=== PATIENT | male | born 1970 | race Hispanic/Latino ===

== ENCOUNTER 2020-04-05 16:50 | Emergency (ER) | payer OTHER ==
[2020-04-06 15:09] LABS: SARS-CoV-2 MS2 Positive; SARS-CoV-2 N Gene Negative; SARS-CoV-2 S Gene Negative; SARS-CoV-2 orf1ab Negative
== END 2020-04-05 17:23 | disposition home or self-care (01) ==
LOC: ERS 16:50
DX: J02.9 Acute pharyngitis, unspecified (principal); Z20.828 Contact with and (suspected) exposure to other viral communicable diseases; E11.9 Type 2 diabetes mellitus without complications; Z79.84 Long term (current) use of oral hypoglycemic drugs
CPT/HCPCS: 87635; 99283; U0003

== ENCOUNTER 2021-02-07 08:17 | Outpatient (CLI) | payer BC | END 2021-02-07 08:18 | disposition home or self-care (01) | LOC: TBSIIMAG 08:17 | PROVIDERS: ATTEND Psychiatry & Neurology Neurology | DX: M51.26 Other intervertebral disc displacement, lumbar region (principal); M47.816 Spondylosis without myelopathy or radiculopathy, lumbar region; M47.817 Spondylosis without myelopathy or radiculopathy, lumbosacral region | CPT/HCPCS: 72148 ==

== ENCOUNTER 2022-12-16 12:41 | Outpatient (CLI) | payer BC | END 2022-12-16 12:42 | disposition home or self-care (01) | LOC: RAD 12:41 | PROVIDERS: ATTEND Internal Medicine | DX: R13.10 Dysphagia, unspecified (principal) | CPT/HCPCS: 74220 ==